=== PATIENT | female | born 1990 | race American Indian/Alaskan Native ===

== ENCOUNTER 2017-03-07 14:36 | Emergency (ER) | payer BC ==
[2017-03-07 15:14] VITALS: BP 131/90
[2017-03-07] MEDS ORDERED: ULTRAM PO ONE (16:54)
--- NOTE | 2017-03-07 16:57 | Emergency Department Report ---
ED ENT HPI - General Chief complaint: Dental/Oral Stated complaint: TOOTHACHE Time Seen by Provider: 03/07/17 16:29 Source: patient Mode of arrival: Ambulatory Limitations: No Limitations - History of Present Illness complaint: tooth pain Onset/Timin -: week(s) Location: tooth # (17) Severity: moderate Severity scale (0 -10): 4 Quality: aching, sharp Consistency: intermittent Worsens with: none Context- Dental: poor dental care, other (wisdom tooth impacted ) Associated Symptoms: gum swelling, toothache. denies: fever, cough, pain with swallowing, sore throat, tinnitus, hearing loss, discharge from ear, rhinorrhea - Related Data Previous Rx's Medication Instructions Recorded Last Taken Type Nitrofurantoin Green/M-Cryst 100 mg PO Q12HR #20 capsule 06/17/16 Unknown Rx [Macrobid CAP] Amoxicillin 500 mg PO Q8HR #30 capsule 03/07/17 Unknown Rx traMADol [Ultram] 50 mg PO Q6HR PRN #20 tablet 03/07/17 Unknown Rx Allergies Allergy/AdvReac Type Severity Reaction Status Date / Time No Known Allergies Allergy Verified 03/07/17 15:09 ED Dental HPI - General Chief complaint: Dental/Oral Stated complaint: TOOTHACHE Time Seen by Provider: 03/07/17 16:29 Source: patient Mode of arrival: Ambulatory Limitations: No Limitations - History of Present Illness complaint: tooth pain Onset/Timin -: Sudden, week(s) (acute on chronic condition) Severity: moderate Quality: aching, sharp Consistency: intermittent Improves with: none Worsens with: chewing, hot/cold liquids Context- Dental: history of dental caries Dental Associated Symptons: Yes: Gum Swelling - Related Data Previous Rx's Medication Instructions Recorded Last Taken Type Nitrofurantoin Green/M-Cryst 100 mg PO Q12HR #20 capsule 06/17/16 Unknown Rx [Macrobid CAP] Amoxicillin 500 mg PO Q8HR #30 capsule 03/07/17 Unknown Rx traMADol [Ultram] 50 mg PO Q6HR PRN #20 tablet 03/07/17 Unknown Rx Allergies Allergy/AdvReac Type Severity Reaction Status Date / Time No Known Allergies Allergy Verified 03/07/17 15:09 ED Review of Systems ROS: Stated complaint: TOOTHACHE Other details as noted in HPI Constitutional: denies: chills, fever Eyes: denies: eye pain, eye discharge, vision change ENT: other (toothe ache ) Respiratory: denies: cough, shortness of breath, wheezing Cardiovascular: denies: chest pain, palpitations Endocrine: no symptoms reported Gastrointestinal: denies: abdominal pain, nausea, diarrhea Genitourinary: denies: urgency, dysuria, discharge Musculoskeletal: denies: back pain, joint swelling, arthralgia Skin: denies: rash, lesions Neurological: denies: headache, weakness, paresthesias Psychiatric: denies: anxiety, depression Hematological/Lymphatic: denies: easy bleeding, easy bruising ED Past Medical Hx - Past Medical History Hx Hypertension: No Hx Congestive Heart Failure: No Hx Diabetes: No Hx Deep Vein Thrombosis: No Hx Renal Disease: No Hx Sickle Cell Disease: No Hx Seizures: No Hx Asthma: No Hx COPD: No Hx HIV: No Additional medical history: 3 miscarriages. 1 vaginal - Social History Smoking Status: Current Every Day Smoker Substance Use Type: None - Medications Home Medications: Home Medications Medication Instructions Recorded Confirmed Last Taken Type Nitrofurantoin Green/M-Cryst 100 mg PO Q12HR #20 capsule 06/17/16 Unknown Rx [Macrobid CAP] Amoxicillin 500 mg PO Q8HR #30 capsule 03/07/17 Unknown Rx traMADol [Ultram] 50 mg PO Q6HR PRN #20 tablet 03/07/17 Unknown Rx ED Physical Exam - General Limitations: No Limitations General appearance: alert, in no apparent distress - Head Head exam: Present: atraumatic, normocephalic - Eye Eye exam: Present: normal appearance - ENT ENT exam: Present: mucous membranes moist, TM's normal bilaterally, normal external ear exam, other (infected dental caries #17 mild gum swelling mild erythema no focal abscess no trismus ) - Neck Neck exam: Present: normal inspection - Respiratory Respiratory exam: Present: normal lung sounds bilaterally. Absent: respiratory distress - Cardiovascular Cardiovascular Exam: Present: regular rate, normal rhythm. Absent: systolic murmur, diastolic murmur, rubs, gallop - GI/Abdominal GI/Abdominal exam: Present: soft, normal bowel sounds - Rectal Rectal exam: Present: deferred - Extremities Exam Extremities exam: Present: normal inspection - Back Exam Back exam: Present: normal inspection - Neurological Exam Neurological exam: Present: alert, oriented X3 - Psychiatric Psychiatric exam: Present: normal affect, normal mood - Skin Skin exam: Present: warm, dry, intact, normal color. Absent: rash ED Course Vital Signs 03/07/17 15:10 Temperature 98.5 F Pulse Rate 95 H Respiratory 18 Rate Blood Pressure 131/90 O2 Sat by Pulse 100 Oximetry ED Medical Decision Making - Medical Decision Making pt is a 26 y/o aaf with hx infected dental caries who presents for same to left lower #17 advises dentist said its impacted, exam mild gum erythema mild swelling no focal abscess no trismus pt is tolerating po intake , no facial swelling plan follow up with [facility] will call thursday to set up appointment pt verbalized agreement and understanding with discharge plan. will tx with amoxicillin and ultram prn pain pt verbalized agreement and understanding with discharge plan. Critical care attestation.: If time is entered above; I have spent that time in minutes in the direct care of this critically ill patient, excluding procedure time. ED Disposition Clinical Impression: Infected dental caries Disposition: TO HOME OR SELFCARE Is pt being admited?: No Does the pt Need Aspirin: No Condition: Good Instructions: Dental Caries (ED) Additional Instructions: follow up with [facility] on thursday call for appointment : Prescriptions: Amoxicillin 500 mg PO Q8HR #30 capsule traMADol [Ultram] 50 mg PO Q6HR PRN #20 tablet PRN Reason: Pain Referrals: PRIMARY CARE, [Primary Care Provider] - 3-5 Days Forms: Work/School Release Form(ED) Time of Disposition: 17:05
== END 2017-03-07 17:11 | disposition home or self-care (01) ==
LOC: ED 14:36
DX: K02.9 Dental caries, unspecified (principal); F17.200 Nicotine dependence, unspecified, uncomplicated
CPT/HCPCS: 99282

== ENCOUNTER 2017-12-14 03:54 | Inpatient (IN) | payer BC, OTHER ==
[2017-12-14] MEDS ORDERED: SUBLIMAZE IV PRN (04:26)
[2017-12-14] MEDS ORDERED: STADOL IV PRN (04:26)
[2017-12-14 04:57] LABS: Hematocrit 37.8 % (30.3-42.9); Hemoglobin 12.6 gm/dl (10.1-14.3); Mean Corpuscular HGB Conc 33 % (30-34); Mean Corpuscular Hemoglobin 30 pg (28-32); Mean Corpuscular Volume 91 fl (79-97); Platelet Count 174 K/mm3 (140-440); Red Blood Count 4.18 M/mm3 (3.65-5.03); Red Cell Distribution Width 14.4 % (13.2-15.2)
[2017-12-14] MEDS: LACTATED RINGERS 1,000 ML IV SCH ×2 (05:13→07:29)
[2017-12-14] MEDS ORDERED: ePHEDrine SULFATE ONE (07:37)
--- NOTE | 2017-12-14 07:59 | Anesthesia Consultation ---
Anesthesia Consult and Med Hx Date of service: 12/14/17 - Airway Anesthetic Teeth Evaluation: Good ROM Head & Neck: Adequate Mental/Hyoid Distance: Adequate Mallampati Class: Class II Intubation Access Assessment: Probably Good - Pre-Operative Health Status ASA Pre-Surgery Classification: ASA2 Proposed Anesthetic Plan: Epidural, Spinal - Pulmonary Hx Smoking: Yes (former) Hx Asthma: No COPD: No Hx Pneumonia: No - Cardiovascular System Hx Hypertension: No - Central Nervous System Hx Seizures: No Hx Psychiatric Problems: No - Endocrine Hx Renal Disease: No Hx End Stage Renal Disease: No Hx Hypothyroidism: No Hx Hyperthyroidism: No - Hematic Hx Anemia: No Hx Sickle Cell Disease: No - Other Systems Hx Alcohol Use: No
[2017-12-14] MEDS ORDERED: fentaNYL-BUPIV 2 MCG/ML-0.125% 200 MCG/100 ML BAG EPIDURAL SCH (08:30)
[2017-12-14] MEDS ORDERED: NARCAN 2 MG/2 ML IV PRN (08:30)
[2017-12-14] MEDS ORDERED: ePHEDrine SULFATE IV PRN (08:30)
[2017-12-14] MEDS ORDERED: PITOCin/NS 20 UNIT/1000ML DRIP 20 UNITS/1,000 ML BAG IV SCH (10:00)
[2017-12-14] MEDS ORDERED: PITOCin/NS 30 UNIT/500ML 30 UNITS/500 ML BAG IV SCH (10:00)
[2017-12-14] MEDS ORDERED: MINERAL OIL ONE (10:50)
--- NOTE | 2017-12-14 11:29 | History and Physical Report ---
History of Present Illness Date of examination: 12/14/17 Date of admission: 12/14/17 04:25 Chief complaint: Intense Labor Pains History of present illness: Late entry to care at 27 3/7 weeks, course complicated by smoking, Vitamin D Deficiency, and Trichomonas which was treated and TERRELL is Negative. Past History Past Medical History: no pertinent history Past Surgical History: no surgical history [employer] History: trichomonas Family/Genetic History: diabetes, cancer Social history: no significant social history, single, smoking - Obstetrical History Expected Date of Delivery: 12/13/17 Actual Gestation: 40 Week(s) 1 Day(s) : 6 Para: 1 Hx # Term Pregnancies: 1 Spontaneous Abortions: 4 Number of Living Children: 1 #1 Infant Gender: Female year: 2[age][birth year] Birthweight: 2.637 kg Method of Delivery: Vaginal Gestational age at delivery: 38 Complications: none Medications and Allergies Allergies Allergy/AdvReac Type Severity Reaction Status Date / Time No Known Allergies Allergy Verified 03/07/17 15:09 Home Medications Medication Instructions Recorded Confirmed Last Taken Type Nitrofurantoin [place]/M-Cryst 100 mg PO Q12HR #20 capsule 06/17/16 12/14/17 Unknown Rx [Macrobid CAP] Amoxicillin 500 mg PO Q8HR #30 capsule 03/07/17 12/14/17 Unknown Rx traMADol [Ultram] 50 mg PO Q6HR PRN #20 tablet 03/07/17 12/14/17 Unknown Rx Tablet 1 tab PO QDAY 12/14/17 12/14/17 12/13/17 08:00 History 1 Active Meds: Active Medications Butorphanol Tartrate (Stadol) 2 mg IV Q2H PRN PRN Reason: Labor Pain Ephedrine Sulfate (Ephedrine Sulfate) 10 mg IV Q2M PRN PRN Reason: Hypotension Fentanyl (Sublimaze) 100 mcg IV Q2H PRN PRN Reason: Pain Last Admin: 12/14/17 05:17 Dose: 100 mcg Lactated Ringer's (Lactated Ringers) 1,000 mls @ 125 mls/hr IV DIRECT NERY Last Admin: 12/14/17 07:29 Dose: 125 mls/hr Fentanyl/Bupivacaine/Sodium Chlor (Fentanyl-Bupiv 2 Mcg/Ml-0.125%) 200 mcg in 100 mls @ 12 mls/hr EPIDURAL TITR NERY; Protocol Last Admin: 12/14/17 09:16 Dose: 12 mls/hr Oxytocin/Sodium Chloride (Pitocin/Ns 20 Unit/1000ml Drip) 20 units in 1,000 mls @ 0 mls/hr IV DIRECT NERY Oxytocin/Sodium Chloride (Pitocin/Ns 30 Unit/500ml) 30 units in 500 mls @ 4 mls /hr IV TITR NERY; Protocol Naloxone HCl (Narcan 2 Mg/2 Ml) 0.2 mg IV Q5M PRN PRN Reason: Respiratory sedation Review of Systems All systems: negative - Vital Signs Vital signs: Vital Signs Temp 98.2 F 12/14/17 04:20 Temp Pulse Resp BP Pulse Ox 98.5 F 68 18 135/84 12/14/17 08:05 12/14/17 05:01 12/14/17 08:05 12/14/17 05:01 - Physical Exam Breasts: Positive: normal Cardiovascular: Regular rate Lungs: Positive: Clear to auscultation, Normal air movement Abdomen: Positive: normal appearance, soft, normal bowel sounds Genitourinary (Female): Positive: normal external genitalia, normal perenium Cervix: Positive: other (leaking clear fluids) Uterus: Positive: enlarged Anus/Rectum: Positive: normal perianal skin Extremities: Positive: normal - Obstetrical FHR: category 2 Uterine Contraction Monitor Mode: External Cervical Dilatation: 8 Cervical Effacement Percentage: 90 station: -2 Uterine Contraction Pattern: Regular Uterine Tone Measurement Phase: Resting Uterine Contraction Intensity: Moderate Results Result Diagrams: 12/14/17 04:20 All other labs normal. Assessment and Plan A: IUP @ 40 1/7 weeks Active Labor Category II Tracing GBS Negative P: Admit to L&D per Routine Orders
[2017-12-14] MEDS ORDERED: NORCO 5/325 PO PRN (11:30)
[2017-12-14] MEDS ORDERED: BENADRYL PO PRN (11:30)
--- NOTE | 2017-12-14 11:37 | Procedure Note ---
OB Delivery Note - Delivery Date of Delivery: 12/14/17 (1059) Surgeon: POLLO MAHARAJ Estimated blood loss: 200cc - Vaginal Delivery presentation: vertex Delivery position: OA Intrapartum events: mult.variable deceleratio Delivery induction: none Delivery monitor: external FHT, external uterine Route of delivery: Delivery placenta: manual Delivery cord: nuchal cord, 3 umbilical vessels Episiotomy: none Delivery laceration: none Anesthesia: epidural Delivery comments: of a live 6'4 female infant over a intact perineum under epidural anesthesia with Apgars of 8 and 9 at 1059 on 12/14/2017. Nuchal cord x 1 manually reduced with delivery of body. Infant directly to maternal abd/ chest, skin to skin contact. Delayed cord clamping and cutting; cord cut by the father of the baby. Manual extraction of placenta complete and intact at 1110. Fundus is firm and midline located 5 below the U. Lochia is scant. - A at 1 minute: 8 at 5 minutes: 9 Gender: Female (6'4)
[2017-12-14] MEDS ORDERED: SODIUM CHLORIDE FLUSH SYRINGE 10 ML IV PRN (12:00)
[2017-12-14] MEDS ORDERED: MILK OF MAGNESIA PO PRN (12:00)
[2017-12-14] MEDS: MOTRIN PO SCH (12:39)
[2017-12-14 22:53] LABS: Hematocrit 33.9 % (30.3-42.9); Hemoglobin 11.4 gm/dl (10.1-14.3)
[2017-12-15] MEDS: MOTRIN PO SCH ×2 (00:13→05:41)
--- NOTE | 2017-12-15 16:34 | Progress Note ---
Assessment and Plan A: PPD#1 s/p Stable Undecided on contraception P: Routine PP care Discharge home today Subjective - Subjective Date of service: 12/15/17 Principal diagnosis: Patient reports: appetite normal, voiding normally, pain well controlled, flatus , ambulating normally [place]: doing well, bottle feeding Objective - Vital Signs Latest vital signs: Vital Signs Temp Pulse Resp BP BP BP Pulse Ox 12/15/17 07:56 99.1 F 66 18 131/79 96 12/15/17 05:41 18 12/15/17 01:04 98.2 F 66 18 96/54 12/15/17 00:13 18 12/14/17 20:53 98.5 F 68 18 115/58 12/14/17 16:53 98.1 F 81 18 124/82 100 Intake and Output 12/15/17 12/15/17 12/15/17 07:59 15:59 23:59 Intake Total 360 Balance 360 Intake: Intake, Free Water 360 Other: # Voids Void 1 - Exam Breasts: Present: normal Cardiovascular: Present: Regular rate, Normal S1, Normal S2 Lungs: Present: Clear to auscultation, Normal air movement Abdomen: Present: normal appearance, soft, normal bowel sounds Vulva: both: normal Uterus: Present: normal, firm, fundal height below umbilicus (-2) Extremities: Present: normal Deep Tendon Reflex Grade: Normal +2
--- NOTE | 2017-12-15 16:36 | Discharge Summary ---
Providers - Providers Date of Admission: 12/14/17 04:25 Date of discharge: 12/15/17 Attending physician: MARIO WALKER MD Primary care physician: MARIO WALKER MD Hospitalization Reason for admission: active labor, IUP at term Delivery: Procedure details: SEE H&P and delivery note Episiotomy: none Laceration: none complications: none Discharge diagnosis: IUP at term delivered [place] baby: female Condition at discharge: Good Disposition: DC-01 TO HOME OR SELFCARE Plan - Provider Discharge Summary Activity: routine, no sex for 6 weeks, no heavy lifting 4 weeks, no strenuous exercise Diet: routine Instructions: routine Additional instructions: [] Smoking cessation referral if applicable(refer to patient education folder for contact #) [] Refer to [facility] Booklet Call your doctor immediately for: * Fever > 100.5 * Heavy vaginal bleeding ( >1 pad per hour) * Severe persistent headache * Shortness of breath * Reddened, hot, painful area to leg or breast * Drainage or odor from incision. * Keep incision clean and dry at all times and follow doctor's instructions regarding bathing/showering - Follow up plan Follow up: MARIO WALKER MD [Primary Care Provider] - 6 Weeks
[2017-12-15 18:04] VITALS: BP 118/70
== END 2017-12-15 17:41 | disposition home or self-care (01) | DRG 774 ==
LOC: TRG 03:54 → LD 04:25 → OB 13:26
PROVIDERS: ADMIT Obstetrics & Gynecology; ATTEND Obstetrics & Gynecology
PROC: 10E0XZZ Delivery of Products of Conception, External Approach (ICD-10-PCS; principal; 2017-12-14)
PROC: 3E0R3BZ Introduction of Anesthetic Agent into Spinal Canal, Percutaneous Approach (ICD-10-PCS; 2017-12-14)
PROC: 00HU33Z Insertion of Infusion Device into Spinal Canal, Percutaneous Approach (ICD-10-PCS; 2017-12-14)
DX: O76 Abnormality in fetal heart rate and rhythm complicating labor and delivery (principal); O98.32 Other infections with a predominantly sexual mode of transmission complicating childbirth; O69.81X0 Labor and delivery complicated by cord around neck, without compression, not applicable or unspecified; Z3A.40 40 weeks gestation of pregnancy; Z37.0 Single live birth; O99.334 Smoking (tobacco) complicating childbirth; A59.9 Trichomoniasis, unspecified; O75.89 Other specified complications of labor and delivery; E55.9 Vitamin D deficiency, unspecified
CPT/HCPCS: 36415; 85014; 85018; 85027; 86592; 86850; 86900; 86901; J2590; J3010; J7120

== ENCOUNTER 2018-11-10 13:33 | Emergency (ER) | payer BC, OTHER ==
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
[2018-11-10 14:06] VITALS: BP 141/80
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
[2018-11-10] MEDS ORDERED: IBUPROFEN PO ONE (15:29)
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
== END 2018-11-10 15:47 | disposition home or self-care (01) ==
LOC: ED 13:33
DX: S16.1XXA Strain of muscle, fascia and tendon at neck level, initial encounter (principal); S09.90XA Unspecified injury of head, initial encounter; V49.49XA Driver injured in collision with other motor vehicles in traffic accident, initial encounter; Y93.89 Activity, other specified; Y92.89 Other specified places as the place of occurrence of the external cause; Y99.8 Other external cause status
CPT/HCPCS: 70450; 72125